=== PATIENT | male | born 1980 | race Caucasian/White ===

== ENCOUNTER 2018-07-25 16:13 | Emergency (ER) | payer MEDICAID ==
[~2018-07-25] VITALS: Ht 172.7 cm; Wt 78.8 kg
[~2018-07-25 16:13] MED LIST: CLIN150C2 PO; CLOT24CR2 TP; HYDR25SU32 RC
[2018-07-25 16:34] VITALS: BP 133/80
[2018-07-25] MEDS ORDERED: BUPIVAcaine/PF 2.5 mg/ml (0.25%) 30ml vial IJ ONE (17:10)
[2018-07-25] MEDS ORDERED: TETanus/Pertussis (Acell)/Diphther VAC/PF (Tdap-Adult) 0.5ml syringe IM ONE (17:10)
[2018-07-25] MEDS ORDERED: BUPIVAcaine/PF 2.5mg/ml (0.25%) 10ml vial IJ ONE (17:15)
[2018-07-25] MEDS ORDERED: SULF1TAB49 PO (17:49)
[2018-07-25] MEDS ORDERED: CEPH500C5 PO (17:49)
== END 2018-07-25 18:05 | disposition home or self-care (01) ==
LOC: ER 16:13
DX: L02.414 Cutaneous abscess of left upper limb (principal); Z86.14 Personal history of Methicillin resistant Staphylococcus aureus infection
CPT/HCPCS: 10060; 90471; 90715; 99283; J3490

== ENCOUNTER 2019-01-22 10:18 | Emergency (ER) | payer MEDICAID ==
[~2019-01-22] VITALS: Ht 172.7 cm; Wt 70.0 kg
[~2019-01-22 10:18] MED LIST changes: +CEPH500C5 PO; -CLIN150C2 PO
[2019-01-22 10:37] VITALS: BP 127/90
[2019-01-22] MEDS ORDERED: LIDOcaine 1% w/epiNEPHrine 1:200,000 30ml vial IM ONE (11:00)
[2019-01-22] MEDS ORDERED: SULF1TAB49 PO (11:03)
== END 2019-01-22 12:13 | disposition home or self-care (01) ==
LOC: ER 10:19
DX: L02.212 Cutaneous abscess of back [any part, except buttock and flank] (principal); Z86.14 Personal history of Methicillin resistant Staphylococcus aureus infection; Z79.899 Other long term (current) drug therapy
CPT/HCPCS: 10060; 99283; J3490

== ENCOUNTER 2020-12-15 09:04 | Emergency (ER) | payer MEDICAID ==
[~2020-12-15] VITALS: Ht 172.7 cm; Wt 68.2 kg
[~2020-12-15 09:04] MED LIST changes: -CEPH500C5 PO
[2020-12-15 09:05] VITALS: BP 137/89
[2020-12-15] MEDS ORDERED: LIDOcaine 1% W/epiNEPHrine 1:200,000 10ml vial IJ ONE (09:25)
[2020-12-15] MEDS ORDERED: TETanus/Pertussis (Acell)/Diphther VAC/PF (Tdap-Adult) 0.5ml syringe IMVAC ONE (09:25)
== END 2020-12-15 11:47 | disposition home or self-care (01) ==
LOC: ER 09:04
DX: S61.210A Laceration without foreign body of right index finger without damage to nail, initial encounter (principal); Z86.14 Personal history of Methicillin resistant Staphylococcus aureus infection; Z79.899 Other long term (current) drug therapy; W26.0XXA Contact with knife, initial encounter; Y93.89 Activity, other specified; Y92.89 Other specified places as the place of occurrence of the external cause; Y99.8 Other external cause status
CPT/HCPCS: 12001; 90471; 90715; 99283

== ENCOUNTER 2021-03-22 07:00 | Emergency (ER) | payer MEDICAID ==
[~2021-03-22] VITALS: Ht 172.7 cm; Wt 75.0 kg
[2021-03-22 07:27] VITALS: BP 159/104
[2021-03-22] MEDS ORDERED: CHLO118L TOP (07:43)
[2021-03-22] MEDS ORDERED: DOXY100C43 PO (07:43)
== END 2021-03-22 08:47 | disposition home or self-care (01) ==
LOC: ER 07:01
DX: L08.9 Local infection of the skin and subcutaneous tissue, unspecified (principal); R50.9 Fever, unspecified; R09.81 Nasal congestion; Z86.14 Personal history of Methicillin resistant Staphylococcus aureus infection; Z79.2 Long term (current) use of antibiotics; Z79.899 Other long term (current) drug therapy
CPT/HCPCS: 99283

== ENCOUNTER 2021-06-10 18:05 | Emergency (ER) | payer MEDICAID ==
[~2021-06-10 18:05] MED LIST changes: +CHLO118L TOP
== END 2021-06-10 19:13 | disposition left against medical advice (07) ==
LOC: ER 18:05
DX: L02.91 Cutaneous abscess, unspecified (principal); Z53.21 Procedure and treatment not carried out due to patient leaving prior to being seen by health care provider

== ENCOUNTER 2021-06-14 17:23 | Emergency (ER) | payer MEDICAID ==
[~2021-06-14] VITALS: Ht 172.7 cm; Wt 75.0 kg
[2021-06-14 17:50] VITALS: BP 130/82
[2021-06-14] MEDS ORDERED: sulfamethoxazole/trimethoprim DS (800/160mg) tablet PO ONE (19:15)
[2021-06-14] MEDS ORDERED: LIDOcaine 1% W/epiNEPHrine 1:200,000 10ml vial IJ ONE (19:15)
[2021-06-14] MEDS ORDERED: SULF1TAB49 PO (19:56)
== END 2021-06-14 19:57 | disposition home or self-care (01) ==
LOC: ER 17:23
DX: L73.2 Hidradenitis suppurativa (principal); Z86.14 Personal history of Methicillin resistant Staphylococcus aureus infection; Z79.2 Long term (current) use of antibiotics; Z79.899 Other long term (current) drug therapy
CPT/HCPCS: 10060; 99283

== ENCOUNTER 2024-04-04 16:17 | Emergency (ER) | payer MEDICAID, OTHER ==
[~2024-04-04] VITALS: Ht 172.7 cm; Wt 76.3 kg
[~2024-04-04 16:17] MED LIST changes: -CLOT24CR2 TP; +CLOT24CR5 TP
[2024-04-04] MEDS ORDERED: rabies immune globulin/PF 150 unit/ml inj IMVAC STA (16:35)
[2024-04-04] MEDS ORDERED: rabies vaccine (PCEC)/PF 2.5 unit kit IMVAC ONE (16:35)
[2024-04-04] MEDS ORDERED: TETanus/Pertussis (Acell)/Diphther VAC/PF (Tdap-Adult) 0.5ml syringe IMVAC ONE (16:35)
[2024-04-04] MEDS ORDERED: DOXY-460 PO (17:00)
[2024-04-04] MEDS: DOXYCYCLINE 100MG CAPSULE PO ONE (17:50)
[2024-04-04] MEDS: CefTRIAXone 1000mg IM Kit (w/lidocaine diluent) IM ONE (17:53)
[2024-04-04 18:06] VITALS: BP 130/72; PULSE 70; RESP 15; TEMP 98.2; O2SAT 99
[2024-04-07 10:54] LABS: CHLAMYDIA TRACHOMATIS, NAA Negative (Negative)
== END 2024-04-04 18:08 | disposition home or self-care (01) ==
LOC: ER 16:18
DX: R36.9 Urethral discharge, unspecified (principal); A54.9 Gonococcal infection, unspecified; Z79.2 Long term (current) use of antibiotics; Z79.899 Other long term (current) drug therapy
CPT/HCPCS: 36415; 87491; 87591; 99283; J0696; 90376; 96372

== ENCOUNTER 2025-02-24 10:29 | Emergency (ER) | payer OTHER ==
[~2025-02-24] VITALS: Ht 172.7 cm; Wt 77.5 kg
[2025-02-24 10:37] VITALS: BP 138/100; PULSE 77; RESP 18; O2SAT 99
--- NOTE | 2025-02-24 10:42 | Physician Documentation ---
History of Present Illness ~ Chief Complaint: Abscess Stated Complaint: STAPH INFECTION Time Seen by MD: 11:01 Primary Medical Doctor: NONE HPI 44-year-old male presents to the ED with a complaint of recurrent staph infections. States he has a mom both of his arms and on his face. He says he has had deal of this before and has intermittent symptoms. Denies fever nausea vomiting or any other concerning symptoms Day of Onset: Feb 24, 2025 Tetanus Within 5 Years: Yes Medication Reconciliation Allergies: Coded Allergies: No Known Allergies (Unverified , 02/24/25) Scheduled Chlorhexidine Gluconate (Hibiclens), 1 APPLIC TOP DAILY Chlorhexidine Gluconate (Hibiclens), 1 EA TOP DAILY Clotrimazole (Lotrimin Af), 24 GM TP BID Doxycycline Monohydrate (Doxycycline Monohydrate), 1 CAP PO Q12H Hydrocortisone Acetate (Anusol-Hc), 1 SUPP RC Q12H Past Medical History Past Medical History: Ch[place], MRSA Abscess Past Surgical History: no surgical history Alcohol Use: None Drug Use: none Lives In: Home Occupation: employed Review of Systems All Other Systems at this time: Reviewed and Negative ROS As stated above in the HPI, otherwise all systems are reviewed and negative. Physical Exam Vital Signs: Temperature: 97.8, Source: Temporal, Heart Rate: 75, Respiratory Rate: 18, BP: 109/62, Pulse Oximetry: 98, Weight: 75.100 Physical Exam General: Alert, no apparent distress. Neurologic: Oriented x4. Psychiatric: Normal mood and affect. Skin: Normal color, warm and dry . Multiple sores on both arms and face in various stages of healing. No obvious purulent discharge Progress Results/Orders Results/Orders Vital Signs 02/24/25 02/24/25 10:37 12:47 Temp 97.8 97.8 Pulse 77 Resp 18 B/P (MAP) 138/100 Pulse Ox 99 Medical Decision Making Findings Patient is present acutely ill in his nontoxic appearing I do suspect in the MRSA or staph infection. Going to treat him both topically and with systemic antibiotics Differential Dx:Considerations: Include: Abscess, Bacteremia, Cellulitis, Erysipelas, Felon, Gas gangrene, Hidrademitis suppurativa, Impetigo, Lymphangitis, Osteromyelitis, Paronychia, Septicemia, Other Departure Disposition: 01 HOME / SELF CARE / HOMELESS Impression: Primary Impression: Wound Additional Impression: Cellulitis Condition: Stable Discharge Instructions: Skin Abscess, [id number] Referrals: NO PRIMARY CARE PROVIDER (PCP) Prescriptions Doxycycline Monohydrate (Doxycycline Monohydrate) 100 Mg Capsule 1 CAP PO Q12H for 10 Days, #20 CAP Prov: JENS SLAUGHTER NP 02/24/25 Chlorhexidine Gluconate (Hibiclens) 4 % Liquid 1 EA TOP DAILY for 7 Days, #3785.41 ML 0 Refills DIRECTED Prov: JENS SLAUGHTER NP 02/24/25 Education Educated: Patient Educated regarding: diagnosis Signature Scribe Signature: r Attestation: The note accurately reflects work and decisions made by me.Jens Razo NP 02/24/25 12:35 JENS SLAUGHTER NP Feb 24, 2025 10:42
[2025-02-24] MEDS ORDERED: CHLO118L TOP (12:31)
[2025-02-24] MEDS ORDERED: DOXY-460 PO (12:31)
[2025-02-24 12:47] VITALS: TEMP 97.8
== END 2025-02-24 12:49 | disposition home or self-care (01) ==
LOC: ER 10:30
DX: L03.114 Cellulitis of left upper limb (principal); L03.113 Cellulitis of right upper limb; L03.211 Cellulitis of face; Z79.899 Other long term (current) drug therapy
CPT/HCPCS: 99283

== ENCOUNTER 2025-07-19 08:41 | Emergency (ER) | payer MEDICAID, OTHER ==
[~2025-07-19] VITALS: Ht 172.7 cm; Wt 81.6 kg
[2025-07-19 08:44] VITALS: BP 153/103; PULSE 77; RESP 18; TEMP 98.2; O2SAT 99
--- NOTE | 2025-07-19 08:50 | Physician Documentation ---
History of Present Illness ~ Stated Complaint: ABSCESS Time Seen by MD: 08:46 Primary Medical Doctor: NONE HPI This is a 44-year-old male who reports that he is one month status post right total knee replacement. He presents today due to concerns for staph infection everywhere. he notes several pimple like areas to his right leg and one on his face. He does report that he had a fever last week. He denies chest pain, shortness of breath, nausea or vomiting. He ambulates with crutches. Medication Reconciliation Allergies: Coded Allergies: No Known Allergies (Unverified , 07/19/25) Scheduled Cephalexin Monohydrate (Cephalexin), 1 CAP PO Q8H Chlorhexidine Gluconate (Hibiclens), 1 APPLIC TOP DAILY Chlorhexidine Gluconate (Hibiclens), 1 EA TOP DAILY Clotrimazole (Lotrimin Af), 24 GM TP BID Hydrocortisone Acetate (Anusol-Hc), 1 SUPP RC Q12H Mupirocin* (Bactroban*), 1 APPLIC TOP Q8H Past Medical History Past Medical History: Chladmydia, MRSA Abscess Past Surgical History: no surgical history Alcohol Use: None Drug Use: none Lives In: Home Occupation: employed Review of Systems ROS As stated above in the HPI, otherwise all systems are reviewed and negative. Physical Exam Physical Exam General: Alert, no apparent distress. Neck: Full range of motion. Respiratory: Lungs clear, no respiratory distress. Chest: No accessory muscle use. Cardiovascular: Regular rate and rhythm, no murmurs. Gastrointestinal: Soft, nontender, nondistended. Bowels sounds present. Extremities: Ambulates with crutches. Antalgic gait favoring right leg. Well- healed right knee incision with mild surrounding erythema. Several pustules to the right leg and face. Neurologic: Oriented x4. Psychiatric: Normal mood and affect. Skin: Normal color, warm and dry. No edema, no ecchymosis. Progress Results/Orders Results/Orders Vital Signs 07/19/25 08:44 Temp 98.2 Pulse 77 Resp 18 B/P (MAP) 153/103 Pulse Ox 99 O2 Flow Rate 0 Medical Decision Making Additional information obtaine: old records Findings The patient was seen here on 02/24/2025 for similar concerns at today's visit, skin infection. He was sent home with doxycycline. He was seen on 04/04/2024 for gonorrhea. He was seen on 06/14/2021 for hidradenitis suppurativa. He was seen on 06/10/2021 for an abscess. He was seen on 03/22/2021 for pustules. He was seen six other times for skin related complaints since 2016. Differential Dx:Considerations: Include: Abscess, Drug reaction, Erythema multiforme, Erysipelas, Herpes zoster, Herpes simplex, Hidradenitis suppurativa, Lymes disease, Osteomyelitis, Pediculosis, Pityriasis rosea, Psoriaisis, Rosacea, Scabies, Scarlet fever, Tinea, Urticaria, Varicella Additional Comment Several scattered small abscesses and open areas noted. No large abscesses. Discussed with patient that this most likely represents folliculitis and repeated use of oral antibiotics is not warranted or recommended. No hot red joint at site of right knee replacement. No signs of cellulitis or joint infection. Patient otherwise well appearing. RX bactroban with instructions to only start cephalexin if not improving. Most Likely Diagnoses: Recurrent folliculitis: This is common in adults and often caused by Staphylococcus aureus, but can also be due to Gram-negative bacteria, fungi, or other pathogens. Folliculitis presents as pustules or papules centered on hair follicles and may recur, especially in those with predisposing factors or repeated antibiotic exposure.[1] Skin abscesses, furuncles, or carbuncles: These are deeper infections of the hair follicle and subcutaneous tissue, typically caused by S. aureus. Recurrent presentations suggest possible colonization or underlying risk factors. Abscesses and carbuncles may require incision and drainage for resolution.[2] Cellulitis: Presents as erythema, warmth, and swelling, often without a clear source. Recurrent cellulitis may be due to chronic skin barrier disruption, lymphedema, or colonization with resistant organisms. Most cases are due to ?- hemolytic streptococci or S. aureus.[3] Impetigo: Although more common in children, adults can develop impetigo, especi ally with repeated skin trauma or underlying dermatologic conditions. Presents as pustules or honey-colored crusts, and can be recurrent.[4] Dermatophyte (tinea) infection: Tinea corporis or other dermatophyte infections can mimic bacterial pustular lesions and may be recurrent, especially if not fully treated or misdiagnosed.[5] Hidradenitis suppurativa: Chronic, recurrent, painful nodules and abscesses in intertriginous areas, but can occasionally present elsewhere. Consider if lesions are deep, recurrent, and associated with scarring or sinus tract formation.[6] Most Important Not to Miss Diagnoses: Necrotizing fasciitis: Rapidly progressive pain, swelling, and systemic toxicity. Rule out with careful examination for severe pain out of proportion, systemic symptoms, and rapid progression. Staphylococcal or streptococcal sepsis / toxic shock syndrome: Look for systemic symptoms (fever, hypotension, rash, multi-organ involvement). Rule out with vital signs, laboratory studies, and clinical assessment.[7] Prosthetic joint infection: Although the knee site appears healthy, any new skin infection near a prosthesis warrants careful evaluation. Rule out with joint exam, ESR/CRP, and consideration of joint aspiration if symptoms develop.[8] Departure Time of Disposition: 09:08 Impression: Primary Impression: Folliculitis Condition: Stable Additional Instructions: Start with topical antibiotic and hygiene measures as below. Start the oral antibiotic, cephalexin, if not improving after several days. Followup with your primary care soon. Return if worse. ### Folliculitis Treatment Instructions What is folliculitis? Folliculitis is an infection and inflammation of hair follicles, often caused by bacteria like *Staphylococcus aureus*. It can appear as small red bumps or pus- filled spots on the skin. Most cases are mild and resolve with simple care, but some may need medication.[1][2] Treatment steps: - Keep the area clean: Wash the affected skin gently with soap and water twi ce daily. Avoid scrubbing or picking at the lesions. - Topical treatments: For mild cases, apply a topical antibiotic (such as fusidic acid or mupirocin) or antiseptic (such as benzoyl peroxide or povidone- iodine) as directed. These help reduce bacteria and inflammation.[1][3][4] - Oral antibiotics: If the infection is widespread, persistent, or not improving with topical treatment, a short course of oral antibiotics (such as doxycycline, cephalexin, or clindamycin) may be prescribed. Take the full course as directed, even if symptoms improve.[1][5][6] - Supportive care: Apply warm, moist compresses to the area for 15-20 minutes several times a day to help with discomfort and promote drainage if pustules are present.[6] - Avoid shaving or friction: Do not shave the affected area until healed. Wear loose-fitting clothing to reduce irritation. - Prevent recurrence: Practice good hygiene, avoid sharing towels or razors, and consider using antibacterial cleansers if folliculitis recurs frequently.[1][7] Ongoing management: - Monitor for signs of worsening infection, such as spreading redness, swelling, pain, fever, or drainage. Seek medical attention if these occur. - If folliculitis recurs often, discuss with your healthcare provider about possible underlying causes (such as chronic skin conditions, immunosuppression, or fungal infection) and further diagnostic testing.[8][2] - For certain types (e.g., Malassezia folliculitis or folliculitis decalvans), alternative treatments like antifungal agents or oral isotretinoin may be considered.[8][9] When to call your healthcare provider: - If symptoms do not improve after 7-10 days of treatment. - If you develop fever, severe pain, or spreading redness. - If lesions become large, deep, or form abscesses. General advice: - Do not share personal items that touch your skin. - Wash hands frequently. - Complete all prescribed medications. These instructions are based on current evidence and clinical guidelines for the management of folliculitis.[1][3][4][6] ### References 1. Interventions for Bacterial Folliculitis and Boils (Furuncles and Carbuncles). Vaishnavi HS, Vaishnavi PT, Maribeth YS, Berkowitz SH, Chi CC. The [place] Database of Systematic Reviews. 2020;2:PB187129. doi:10.1002/23597445.[id number].pub2. 2. First Step in the Differential Diagnosis of Folliculitis: Cytology. Luis Miguel Cohen M. Critical Reviews in Microbiology. 2013;39(1):9-25. doi:10.3109/1505484O .2012.160895. 3. Turpentine Ointment for the Treatment of Folliculitis - An Open, Prospective, Randomized, Placebo- And Comparator-Controlled Multicenter Trial. Elda RC, Mainor N, Garcia H, Gm B, Zee C. Skin Pharmacology and Physiology. 2022;. doi:10.1159/295707074. 4. Fusidic Acid Betamethasone Lipid Cream. Negin G, Declan R, Merlin S, Karen S, Johnny G. International Journal of Clinical Practice. 2016;70 Suppl 184:4-13. doi:10.1111/ijcp.65730. 5. Cutaneous Side-Effects of Kinase Inhibitors and Blocking Antibodies. Kwadwo Ya, Eli LUCERO, Mauri A, et al. The Lancet. Oncology. 2005;6(7):491-500. doi:10.1016/[id number](82)38243-6. 6. Practice Guidelines for the Diagnosis and Management of Skin and Soft Tissue Infections: 2014 Update by the Infectious Diseases Society of [place]. Yifan DL, Brit AL, Chambers HF, et al. Clinical Infectious Diseases : An Official Publication of the Infectious Diseases Society of [place]. 2014;59(2):147-59. doi:10.1093/che/iiq438. 7. Skin and Soft Tissue Infections in Immunocompetent Patients. Leonardo KOROMA. [place] [employer]. 2010;81(7):893-9. 8. Critical Synthesis of Available Data in Malassezia Folliculitis and a Systematic Review of Treatments. Nathan C, Hector MELROS, Luz G, London J, Marcellus CHASE. Journal of the Academy of Dermatology and Venereology : JEADV. 2020;34(8):2360-1790. doi:10.1111/jdv.76749. 9. Oral Isotretinoin as the Most Effective Treatment in Folliculitis Decalvans: A Retrospective Comparison of Different Treatment Regimens in 28 Patients. Sriram ChengK, Trevor MV, kevin Allen, et al. Journal of the Academy of Dermatology and Venereology : JEADV. 2015;29(9):1816-21. doi:10.1111/jdv.75588. Referrals: NO PRIMARY CARE PROVIDER (PCP) Prescriptions Cephalexin Monohydrate (Cephalexin) 500 Mg Capsule 1 CAP PO Q8H for 7 Days, #21 CAP Prov: KRUPA SCHILLING NP 07/19/25 Mupirocin* (Bactroban*) 22 Gm Tube 1 APPLIC TOP Q8H for 7 Days, #22 GM apply to affected area(s) Prov: KRUPA SCHILLING NP 07/19/25 Education Educated: Patient Educated regarding: diagnosis, treatment, prognosis, need for follow up Signature Scribe Signature: x Attestation: The note accurately reflects work and decisions made by me.Krupa Razo NP 07/19/25 08:49 KRUPA SCHILLING NP Jul 19, 2025 08:50
[2025-07-19] MEDS ORDERED: MUPI22OI30 TOP (09:18)
[2025-07-19] MEDS ORDERED: CEPH500C2 PO (09:18)
== END 2025-07-19 09:36 | disposition home or self-care (01) ==
LOC: ER 08:42
DX: L73.9 Follicular disorder, unspecified (principal)
CPT/HCPCS: 99283

== ENCOUNTER 2025-09-14 23:27 | Emergency (ER) | payer MEDICAID ==
[~2025-09-14] VITALS: Ht 172.7 cm; Wt 80.0 kg
[2025-09-14 23:42] VITALS: BP 146/106; PULSE 91; RESP 16; TEMP 99.1; O2SAT 97
== END 2025-09-15 06:20 | disposition left against medical advice (07) ==
LOC: ER 23:27
DX: L98.9 Disorder of the skin and subcutaneous tissue, unspecified (principal); Z53.21 Procedure and treatment not carried out due to patient leaving prior to being seen by health care provider
CPT/HCPCS: 99281